=== PATIENT | male | born 1950 | race Caucasian/White ===

== ENCOUNTER → 2018-06-28 | Outpatient (CLI) | payer MEDICARE | END | disposition home or self-care (01) | LOC: RAH 13:38 | PROVIDERS: ATTEND Internal Medicine | DX: M50.30 Other cervical disc degeneration, unspecified cervical region (principal); M48.53XA Collapsed vertebra, not elsewhere classified, cervicothoracic region, initial encounter for fracture; M47.812 Spondylosis without myelopathy or radiculopathy, cervical region; M48.02 Spinal stenosis, cervical region; M25.78 Osteophyte, vertebrae; Z91.81 History of falling | CPT/HCPCS: 72141 ==